=== PATIENT | female | born 1985 | race Caucasian/White ===

== ENCOUNTER 2016-09-07 11:55 | Emergency (ER) | payer OTHER ==
[~2016-09-07] VITALS: Ht 170.2 cm; Wt 107.5 kg
[~2016-09-07 11:55] MED LIST: TRAM-29 PO
[2016-09-07 12:10] VITALS: BP 135/75
--- NOTE | 2016-09-07 12:26 | PHYS DOC ---
Past Medical History Past Medical History: Anxiety, Bipolar, Migraines, Other Additional Past Medical Histor: chronic pain. Past Surgical History: Other Additional Past Surgical Histo: hernia Alcohol Use: None Drug Use: None Adult General Chief Complaint Chief Complaint: HEAD INJURY/TRAUMA [facility] HPI Patient is a 31 year old female presents to the emergency department stating that she went OUTSIDE her house and her boyfriend had left boxes outside the door and she tripped and fell over him. She states that she hit the left side of her face on the railing in which the railing broke and she landed on the concrete ground approximately 2 feet from where she was at. She denies any loss of consciousness. She does state however she's been dizzy vomited once and is very tired. She has not taken anything for pain and discomfort. She denies any cervical spine tenderness however did have some thoracic spine tenderness. Patient was able to walk with a good steady gait. Denies any numbness or tingling down to the lower extremities. Review of Systems Review of Systems Constitutional: Denies fever or chills [] Eyes: Denies change in visual acuity, redness, or eye pain [] HENT: Denies nasal congestion or sore throat. Left-sided facial swelling and tenderness Respiratory: Denies cough or shortness of breath [] Cardiovascular: No additional information not addressed in HPI [] GI: Denies abdominal pain, nausea, bloody stools or diarrhea. Complaint of one episode of vomiting : Denies dysuria or hematuria [] Musculoskeletal: Denies back pain or joint pain [] Integument: Denies rash or skin lesions [] Neurologic: headache, dizziness, focal weakness or sensory changes [] Allergies Allergies Allergies Coded Allergies Type Severity Reaction Last Updated Verified No Known Drug Allergies 06/20/15 No Physical Exam Physical Exam Constitutional: Well developed, well nourished, no acute distress, non-toxic appearance. [] HENT: Normocephalic, atraumatic, bilateral external ears normal, oropharynx moist, no oral exudates, nose normal. Bilateral tympanic membranes appear to be normal. Patient with tenderness to the left side of the face around the eyes and maxillary area. The area appears appear to be red with no bruising at this time. Eyes: PERRLA, EOMI, conjunctiva normal, no discharge. [] Neck: Normal range of motion, no tenderness, supple, no stridor. [] Cardiovascular:Heart rate regular rhythm, no murmur [] Lungs & Thorax: Bilateral breath sounds clear to auscultation [] Skin: Warm, dry, no erythema, no rash. [] Back: No cervical spine tenderness, no step-offs or deformities or crepitus noted no cervical spine area. Patient did have tenderness noted on the thoracic spine. No CVA tenderness. [] Extremities: No tenderness, no cyanosis, no clubbing, ROM intact, no edema. Patient able to ambulate and with a good steady gait. Neurologic: Alert and oriented X 3, normal motor function, normal sensory function, no focal deficits noted. [] Psychologic: Affect normal, judgement normal, mood normal. [] Current Patient Data Vital Signs Vital Signs Date Time Temp Pulse Resp B/P Pulse Ox O2 Delivery O2 Flow Rate FiO2 09/07/16 12:10 97.6 87 18 99 Room Air 97.6 EKG EKG [] Radiology/Procedures Radiology/Procedures [facility] [address] [place] [address] IMAGING REPORT Signed PATIENT: GEORGIANA YOUNG ACCOUNT: [id number] : 1985 LOCATION: ER AGE: 31 SEX: F EXAM STATUS: REG ER ORD. PHYSICIAN: JARROD LEE NP REASON: fell hitting left side of face, TERRAZAS, vomited dizzy PROCEDURE: HEAD AND MAXILLOFACIAL WO Indication: Fall, injuring left side of the face, complaining of headache and dizziness. Axial imaging through the brain and facial bones was performed without contrast. Sagittal and coronal reformations of the facial bones were also performed. CT brain: The ventricles and sulci are within normal limits. No sulcal effacement, midline shift or hemorrhage is detected. The cisterns are patent. Visualized paranasal sinuses are clear. Impression: No acute intracranial process is detected. CT maxillofacial: The mandible appears intact. The zygomatic arches are intact. The maxillary sinuses are well aerated. The maxillary sinus parks, orbital parks, and nasal bones appear intact. There is mild soft tissue swelling in the left periorbital region. Impression: Left periorbital soft tissue swelling. No facial fracture is detected. PQRS Compliance Statement: One or more of the following individualized dose reduction techniques were utilized for this examination: 1. Automated exposure control 2. Adjustment of the mA and/or kV according to patient size 3. Use of iterative reconstruction technique DICTATED and SIGNED BY: MAURO IRVING MD DATE: 09/07/16 1316 CC: JARROD LEE NP; HIRAM CLAY MD ~ [] [facility] [address] [place] [address] IMAGING REPORT Signed PATIENT: GEORGIANA YOUNG ACCOUNT: [id number] : 1985 LOCATION: ER AGE: 31 SEX: F EXAM STATUS: REG ER ORD. PHYSICIAN: JARROD LEE NP REASON: fell thoracic spine pain PROCEDURE: THORACIC SPINE 3V Thoracic spine, 3 views, 09/07/2016: History: Fall, pain The thoracic vertebral heights are well-maintained. No fracture or dislocation is evident. The paraspinous soft tissues are unremarkable. IMPRESSION: No significant abnormality is detected. DICTATED and SIGNED BY: CECELIA RUSSELL MD DATE: 09/07/16 1253 CC: JARROD LEE NP; HIRAM CLAY MD ~ Course & Med Decision Making Course & Med Decision Making Pertinent Labs and Imaging studies reviewed. (See chart for details) CT scan was negative for any bleeds as well as any facial fractures. Thoracic spine x- ray was negative as well. Patient will be encouraged to use Tylenol for the pain and discomfort for the next 3 days. That she may moved to using ibuprofen as well. Ice packs on the areas of discomfort on 20 minutes off 20 minutes several times a day. Also recommended patient to have someone wake her every 2 hours throughout the night making sure she is alert and oriented and capable moving all of her extremities. Avoid watching TV using his cell phone text messaging or laptop computers as this may increase the headaches and cause nausea vomiting. Also recommended patient follow-up with her primary care physician in the next 2-3 days. Signs and symptoms to return back to emergency department as been provided. Patient agrees with discharge instructions treatment regimens and follow-up recommendations. Dragon Disclaimer Dragon Disclaimer This electronic medical record was generated, in whole or in part, using a voice recognition dictation system. Departure Departure Impression: Primary Impression: Head injury, acute Additional Impression: Brain concussion Disposition: 01 HOME, SELF-CARE Condition: STABLE Referrals: HIRAM CLAY MD (PCP) Patient Instructions: Concussion and Brain Injury, [id number], Head Injury, Adult, [id number] Additional Instructions: Home to rest. Tylenol for pain and discomfort. Ibuprofen may be started into the 3 days for any headache or generalized body aches and discomfort. Ice packs on 20 minutes off 20 minutes several times a day. Have somebody wake you every 2 hours And I make sure you alert and oriented and capable moving all of your extremities. Avoid any cell phone usages, text messaging, or any type of computer devices such as laptops and computers. Follow-up through primary care physician in the next 2-3 days. Return back to emergency percent symptoms of become worse. Problem Qualifiers JARROD LEE NP Sep 07, 2016 12:26
--- NOTE | 2016-09-07 12:56 | RAD ---
Thoracic spine, 3 views, 09/07/2016: History: Fall, pain The thoracic vertebral heights are well-maintained. No fracture or dislocation is evident. The paraspinous soft tissues are unremarkable. IMPRESSION: No significant abnormality is detected.
--- NOTE | 2016-09-07 13:22 | RAD ---
Indication: Fall, injuring left side of the face, complaining of headache and dizziness. Axial imaging through the brain and facial bones was performed without contrast. Sagittal and coronal reformations of the facial bones were also performed. CT brain: The ventricles and sulci are within normal limits. No sulcal effacement, midline shift or hemorrhage is detected. The cisterns are patent. Visualized paranasal sinuses are clear. Impression: No acute intracranial process is detected. CT maxillofacial: The mandible appears intact. The zygomatic arches are intact. The maxillary sinuses are well aerated. The maxillary sinus parks, orbital parks, and nasal bones appear intact. There is mild soft tissue swelling in the left periorbital region. Impression: Left periorbital soft tissue swelling. No facial fracture is detected. PQRS Compliance Statement: One or more of the following individualized dose reduction techniques were utilized for this examination: 1. Automated exposure control 2. Adjustment of the mA and/or kV according to patient size 3. Use of iterative reconstruction technique
== END 2016-09-07 13:42 | disposition home or self-care (01) ==
LOC: ER 11:55
DX: S06.0X9A Concussion with loss of consciousness of unspecified duration, initial encounter (principal); F41.9 Anxiety disorder, unspecified; F31.9 Bipolar disorder, unspecified; G43.909 Migraine, unspecified, not intractable, without status migrainosus; G89.29 Other chronic pain; W01.198A Fall on same level from slipping, tripping and stumbling with subsequent striking against other object, initial encounter; Y93.89 Activity, other specified; Y92.89 Other specified places as the place of occurrence of the external cause; Y99.8 Other external cause status
CPT/HCPCS: 70450; 70486; 72072; 99284-25

== ENCOUNTER 2017-12-25 22:48 | Emergency (ER) | payer OTHER ==
[2017-12-26] MEDS: ALPRAZolam 0.5 MG TABLET PO (00:43)
== END 2017-12-26 01:06 | disposition home or self-care (01) ==
LOC: ER 22:48
DX: F41.9 Anxiety disorder, unspecified (principal); G89.29 Other chronic pain; F31.9 Bipolar disorder, unspecified; G43.909 Migraine, unspecified, not intractable, without status migrainosus
CPT/HCPCS: 93005; 99284-25

== ENCOUNTER 2020-02-07 12:29 | Emergency (ER) | payer OTHER ==
[~2020-02-07] VITALS: Ht 167.6 cm; Wt 105.3 kg
[~2020-02-07 12:29] MED LIST changes: -TRAM-29 PO; +TRAM-48 PO
[2020-02-07 12:50] VITALS: BP 151/96
--- NOTE | 2020-02-07 13:20 | PHYS DOC ---
Past Medical History Past Medical History: Anxiety, Bipolar, Migraines, Other Additional Past Medical Histor: CHRONIC KNEE PAIN, OBESITY, BORDERLINE DM Past Surgical History: Tubal ligation, Other Additional Past Surgical Histo: HERNIA Smoking Status: Current Some Day Smoker Alcohol Use: None Drug Use: None General Adult EDM: Chief Complaint: SORE THROAT HPI: HPI: Patient is a 34 year old female who presents with sore throat, throat itching, pain with swallowing, eye pain, right ear feeling clogged, productive cough. Patient reports that symptoms started 2 days ago but are worse today. She reports that she had a positive COVID exposure to her friend for approximately 5 minutes and because of that exposure she went and got tested for COVID on Tuesday and her test was negative. Patient denies fevers, nasal congestion, nasal drainage, eye itching, headache, vision changes. Patient reports the pain is constant and currently rates her throat pain at a 5 out of 10, she denies any alleviating or exacerbating factors. Review of Systems: Review of Systems: Constitutional: Denies fever or chills. [] Eyes: Denies change in visual acuity; see HPI HENT: Denies nasal congestion; see HPI Respiratory: denies shortness of breath.: Reports productive cough with clear sputum some blood streaks today [] Cardiovascular: Denies chest pain or edema. [] GI: Denies abdominal pain, nausea, vomiting, or diarrhea. [] : Denies dysuria. [] Musculoskeletal: Denies back pain or joint pain; reports muscle aches Integument: Denies rash. [] Neurologic: Denies headache, focal weakness or sensory changes. [] Lymphatic: Denies swollen glands. [] Psychiatric: Denies depression or anxiety. [] Heart Score: Risk Factors: Risk Factors: DM, Current or recent (<one month) smoker, HTN, HLP, family history of CAD, obesity. Risk Scores: Score 0 - 3: 2.5% MACE over next 6 weeks - Discharge Home Score 4 - 6: 20.3% MACE over next 6 weeks - Admit for Clinical Observation Score 7 - 10: 72.7% MACE over next 6 weeks - Early Invasive Strategies Allergies: Allergies: Allergies Coded Allergies Type Severity Reaction Last Updated Verified No Known Drug Allergies 06/20/15 No Physical Exam: PE: Constitutional: Well developed, well nourished, no acute distress, non-toxic appearance. [] HENT: Normocephalic, atraumatic, bilateral external ears normal, TMs normal bilaterally, oropharynx moist, nose normal; erythema posterior pharynx with 1+ tonsils bilaterally, scant exudate, cobblestone appearance of posterior pharynx. [] Eyes: PERRLA, EOMI, conjunctiva normal, no discharge. [] Neck: Normal range of motion, supple, no stridor; left anterior cervical chain tenderness with palpation. [] Cardiovascular:Heart rate regular rhythm, no murmur [] Lungs & Thorax: Bilateral breath sounds clear to auscultation, respirations even and unlabored, no retractions, no respiratory distress [] Skin: Warm, dry, no erythema, no rash. [] Back: No tenderness Extremities: No cyanosis, ROM intact, no edema. [] Neurologic: Alert and oriented X 3, no focal deficits noted. [] Psychologic: Affect normal, judgement normal, mood normal. [] EKG: EKG: [] Radiology/Procedures: Radiology/Procedures: Rapid strep test is negative. Course & Med Decision Making: Course & Med Decision Making Pertinent Labs and Imaging studies reviewed. (See chart for details) Advised patient on results, encouraged warm salt water gargles, Tylenol, and ibuprofen for discomfort. Instructed patient to follow-up with her primary care doctor if symptoms persist, return to the ER if symptoms worsen. Patient verbalized an understanding of home care, medications, follow-up, and return to ED instructions and was in agreement with the plan of care.] [] Dragon Disclaimer: Dragruthie Disclaimer: This electronic medical record was generated, in whole or in part, using a voice recognition dictation system. Departure Departure Impression: Primary Impression: Pharyngitis Qualified Codes: J02.9 - Acute pharyngitis, unspecified Disposition: 01 HOME, SELF-CARE Condition: STABLE Referrals: NO PCP (PCP) Patient Instructions: Viral and Bacterial Pharyngitis, [id number] Additional Instructions: Recommend warm salt water gargles as needed for relief of discomfort. Alternate Tylenol and ibuprofen as needed for fever/pain. Discard your toothbrush tomorrow and begin using a new toothbrush. Follow-up with primary care doctor if symptoms persist. Return to the ER if symptoms worsen. Justicifation of Admission Dx: Justifications for Admission: Justification of Admission Dx: N/A NANCY CALLAWAY [employer] Feb 07, 2020 13:20
== END 2020-02-07 13:30 | disposition home or self-care (01) ==
LOC: ER 12:29
DX: J02.9 Acute pharyngitis, unspecified (principal); L29.9 Pruritus, unspecified; R05 Cough; F41.9 Anxiety disorder, unspecified; F32.9 Major depressive disorder, single episode, unspecified; G43.909 Migraine, unspecified, not intractable, without status migrainosus; F17.200 Nicotine dependence, unspecified, uncomplicated; G89.29 Other chronic pain; E66.9 Obesity, unspecified; Z68.36 Body mass index [BMI] 36.0-36.9, adult; Z98.51 Tubal ligation status; Z98.890 Other specified postprocedural states
CPT/HCPCS: 87070; 87880; 99283